=== PATIENT | male | born 1975 | race African-American/Black ===

== ENCOUNTER 2021-07-17 13:27 | Emergency (ER) | payer OTHER, SELFPAY ==
[2021-07-17] MEDS ORDERED: Lidocaine 1% PF 5 ML VIAL ONE (13:42)
== END 2021-07-17 15:10 | disposition home or self-care (01) ==
LOC: ERS 13:27
DX: L02.211 Cutaneous abscess of abdominal wall (principal); I10 Essential (primary) hypertension; E78.5 Hyperlipidemia, unspecified; E78.00 Pure hypercholesterolemia, unspecified; Z79.899 Other long term (current) drug therapy; Z79.82 Long term (current) use of aspirin
CPT/HCPCS: 10060

== ENCOUNTER 2022-05-02 00:10 | Emergency (ER) | payer SELFPAY | END 2022-05-02 01:07 | disposition home or self-care (01) | LOC: ERS 00:10 | DX: M54.12 Radiculopathy, cervical region (principal); E78.00 Pure hypercholesterolemia, unspecified; I10 Essential (primary) hypertension | CPT/HCPCS: 99283 ==